=== PATIENT | female | born 1950 | race Caucasian/White ===

== ENCOUNTER → 2023-10-06 13:59 | Outpatient (REF) | payer MEDICARE, OTHER, SELFPAY ==
[2023-10-06 15:00] LABS: % Basophils 0.6 % (0-2); % Eosinophils 1.9 % (0-6); % Immature Granulocytes 0.6 % (0-0.5); % Lymphocytes 20.3 % (20.5-51.1); % Neutrophils 68.6 % (42.2-75.2); Absolute Eosinophils 0.1 10^3/uL (0-0.7); Absolute Lymphocytes 1.4 10^3/uL (1.2-3.4); Absolute Monocytes 0.6 10^3/uL (0.1-0.6); Absolute Neutrophils 4.7 10^3/uL (1.4-6.5); Hemoglobin 12.6 g/dL (12.0-16.0); Mean Corp Hgb Conc. 33.2 g/dL (33.0-37.0); Mean Corpuscular Hgb 30.5 pg (27.0-31.0); Nucleated Red Blood Cells % 0 %; Platelet Count 368 10^3/uL (130-400); Red Blood Cell Count 4.13 10^6/uL (4.20-5.40); Red Cell Dist. Width 12.7 % (11.5-14.5); White Blood Cell Count 6.8 10^3/uL (4.8-10.8)
[2023-10-06 15:52] LABS: Blood Urea Nitrogen 25 mg/dl (7-17); Calcium 10.2 mg/dl (8.4-10.2); Carbon Dioxide 30 mmol/L (22-30); Chloride 102 mmol/L (98-107); Glucose 111 mg/dl (70-99); Potassium 4.1 mmol/L (3.5-5.1); eGFR > 60.00
[2023-10-06 15:57] LABS: Sodium 141 mmol/L (135-145)
== END ==
LOC: RCS 13:59
PROVIDERS: ATTENDING PHYSICIAN Orthopaedic Surgery; FAMILY PHYSICIAN Internal Medicine
DX: Z01.818 Encounter for other preprocedural examination (principal)
CPT/HCPCS: 36415; 80048; 85025; 93005

== ENCOUNTER 2023-11-27 20:40 | Emergency (ER) | payer MEDICARE, OTHER, SELFPAY ==
[2023-11-27 20:41] VITALS: BP 162/78
--- NOTE | 2023-11-27 21:00 | ED.GENMED ---
History of Present Illness
General
Chief Complaint: Post Operative Problem(s)
Source: patient
Time Seen by Provider: 11/27/23 20:53
History of Present Illness
History of Present Illness:
73-year-old female, status post left total knee replacement done on November 15 done by [facility] orthopedics, presenting to the emergency department for evaluation after she had a wound check today with the tom being removed and subsequently
went to physical therapy but while at physical therapy the midportion of the surgical site opened and has had continuous bleeding/oozing since. Patient states that despite multiple dressing changes she is still had periodic bleeding and oozing
which is why she presented to the ER this evening. She states her pain is well-controlled. Denies any fevers or infectious symptoms.
Past History
Past History
ED Past Medical History: Asthma, HTN and Hypercholesterolemia
ED Past Surgical History: Gynecological and Other (Rectocele, cystocele, cataract)
Social History
Tobacco: Non-smoker
Alcohol: None
Drug: None
Personal:
Living: with family
Review of Systems
Review of Systems
All Other Systems: ROS reviewed and negative except as documented in HPI and ROS
Phy Exam
Physical Exam
Physical Exam:
GENERAL: Alert , in no apparent distress
EYE: conjunctiva clear
Head: Normocephalic atraumatic
NECK: Supple,
ENT: mmm.
LUNGS: no acute respiratory distress
NEUROLOGICAL: Alert and oriented
SKIN: Warm and dry, left knee: Surgical incision noted with Steri-Strips overlying. The Steri-Strips are somewhat saturated in serosanguineous drainage. Steri-Strips were removed without any difficulty. There is an approximate 1 cm open
area/dehisced portion of wound with seroma underneath. No active bleeding. No surrounding signs of cellulitis/erythema. Extremities otherwise warm and well-perfused
MUSCULOSKELETAL: well perfused.
PSYCH: Normal and appropriate interaction.
Scores
Heart Failure Risk
Heart Failure Risk Score: Not Applicable
Heart Score for Chest Pain Patients
STEMI patient?: Not applicable
Withdrawal Assessment of Alcohol
Withdrawal Assessment Completed?: Not applicable
Course
Orders/Labs/Results
Orders:
Orders
11/27/23 21:42
Knee Immobilizer Left-Treatmen ONCE
11/27/23 21:44
Cephalexin Monohydrate [Keflex] 500 mg PO NOW STA
Vital Signs
Initial and Last Documented VS:
Initial Vital Signs
Temp Pulse Resp BP Pulse Ox
98.8 F 78 18 162/78 95
11/27/23 20:41 11/27/23 20:41 11/27/23 20:41 11/27/23 20:41 11/27/23 20:41
Last Documented Vital Signs
Temp Pulse Resp BP Pulse Ox
98.8 F 78 18 162/78 95
11/27/23 20:41 11/27/23 20:41 11/27/23 20:41 11/27/23 20:41 11/27/23 20:41
Procedures
Laceration Closure
Left Anterior Knee:
Status of Wound: clean
Size of Wound in cm: 1.5
Description of Wound Edges: sharp
Preparation: cleaned with Betadine
Anesthesia: 1% Lidocaine with epi
Revision/Debridement: routine- no revision
Type of Closure: interrupted sutures (1) and mattress sutures (3)
Skin Closure Material: 4-0 prolene
Number of sutures: 4
MDM/Problems Addressed
Differential Diagnosis Includes:
post op wound, no clinical signs of cellulitis/septic joint
MDM/Problems Addressed:
Patient presenting to the emergency department for evaluation of wound dehiscence to the left knee. Had tom removed today and while at PT the wound dehisced. Serosanguineous drainage presently. Will discuss with patient's orthopedic provider
on management and disposition planning as well as follow-up.
*Pulse Oximetry
Patient hypoxic: no
*Critical Care Note
Total Time (30-74mins, 75-104mins- exclusive of procedures): Not Applicable
Patient Management
Discussion with other providers: Lens Shaper Grinder
Escalation/DeEscalation of care consider admission/obs:
I spoke to Dr. Abdi from orthopedics who had performed patient's surgery. Recommends putting mattress sutures in place. Requesting patient also be placed in a knee immobilizer and to not bend her knee over the weekend. Will place on Keflex to
cover for any infection. Patient will follow-up in office this coming week. Aware of return precautions to the ER.
ED Attending Note
-
Portions of this chart may have been created with voice recognition software.� Occasional wrong word or��sound alike� substitutions may have occurred due to the inherent limitations of voice recognition software.
Discharge Plan
Departure
Patient Disposition: Home (Routine Discharge)
Date of Disposition: 11/27/23
Time of Disposition: 21:41
Patient with high blood pressure during this ER visit?: Yes
Discharge Problem:
Dehiscence of wound
Instructions: Wound Care (DC)
Prescriptions:
New
cephalexin 500 mg tablet
500 mg PO BID 5 Days Qty: 9 0RF
No Action
metronidazole 500 mg tablet
500 mg PO TID Qty: 30 0RF
levofloxacin 500 mg tablet
500 mg PO DAILY 10 Days Qty: 10 0RF
Interventions
Interventions:
*Risk Screen - Suicide Last Done: 11/27/23 20:41
*General Assessment Last Done: 11/27/23 20:45
*Neglect/Abuse Screening Last Done: 11/27/23 20:45
Discharge Date and Time
Print Language: POLISH
[2023-11-27] MEDS: KEFLEX 500 MG PO (22:03)
[2023-11-27 22:05] VITALS: BP 140/75
== END 2023-11-27 22:22 | disposition home or self-care (01) ==
LOC: EMR 20:40
PROVIDERS: EMERGENCY PHYSICIAN Emergency Medicine; FAMILY PHYSICIAN Internal Medicine
DX: T81.30XA Disruption of wound, unspecified, initial encounter (principal); Y83.8 Other surgical procedures as the cause of abnormal reaction of the patient, or of later complication, without mention of misadventure at the time of the procedure; I10 Essential (primary) hypertension
CPT/HCPCS: 99283; 12001

== ENCOUNTER → 2024-10-24 14:38 | Outpatient (REF) | payer MEDICARE, OTHER, SELFPAY ==
[2024-10-24 15:46] LABS: % Basophils 0.5 % (0-2); % Eosinophils 1.6 % (0-6); % Immature Granulocytes 0.4 % (0-0.5); % Lymphocytes 17.3 % (20.5-51.1); % Monocytes 7.1 % (1.7-9.3); % Neutrophils 73.1 % (42.2-75.2); Absolute Eosinophils 0.1 10^3/uL (0-0.7); Absolute Lymphocytes 1.4 10^3/uL (1.2-3.4); Absolute Monocytes 0.6 10^3/uL (0.1-0.6); Absolute Neutrophils 5.8 10^3/uL (1.4-6.5); Mean Corp Hgb Conc. 31.4 g/dL (33.0-37.0); Mean Corpuscular Hgb 27.1 pg (27.0-31.0); Mean Corpuscular Volume 86.2 fL (81.0-99.0); Mean Platelet Volume 9.2 fL (7.4-10.4); Nucleated Red Blood Cells % 0 %; Platelet Count 441 10^3/uL (130-400); Red Blood Cell Count 4.06 10^6/uL (4.20-5.40); Red Cell Dist. Width 14.6 % (11.5-14.5); White Blood Cell Count 7.9 10^3/uL (4.8-10.8)
[2024-10-24 16:00] LABS: Erythrocyte Sed Rate 64 mm/hour (0-20)
== END ==
LOC: REG 14:38
PROVIDERS: ATTENDING PHYSICIAN Physician Assistant Surgical
DX: M25.562 Pain in left knee (principal)
CPT/HCPCS: 36415; 85025; 85652; 86140

== ENCOUNTER → 2024-10-26 12:05 | Outpatient (REF) | payer MEDICARE, OTHER, SELFPAY | LOC: CLAB 12:05 | PROVIDERS: ATTENDING PHYSICIAN Physician Assistant Surgical | DX: Z96.652 Presence of left artificial knee joint (principal) | CPT/HCPCS: 87015; 87070; 87075; 87205 ==

== ENCOUNTER 2024-11-09 07:47 | Inpatient (IN) | payer MEDICARE, OTHER, SELFPAY ==
[2024-11-02 11:29] LABS: Hematocrit 34.5 % (37.0-47.0); Hemoglobin 11.0 g/dL (12.0-16.0); Mean Corp Hgb Conc. 31.9 g/dL (33.0-37.0); Mean Corpuscular Volume 86.0 fL (81.0-99.0); Platelet Count 424 10^3/uL (130-400); Red Cell Dist. Width 14.2 % (11.5-14.5)
[2024-11-02 11:49] LABS: Glycohemoglobin (HgbA1c) 5.8 % (4.0-5.6)
[2024-11-02 11:58] LABS: ALT (SGPT) 10 U/L (0-35); AST (SGOT) 15 U/L (14-36); Albumin 4.2 g/dl (3.5-5.0); Alkaline Phosphatase 103 U/L (38-126); Blood Urea Nitrogen 24 mg/dl (7-17); Calcium 10.0 mg/dl (8.4-10.2); Carbon Dioxide 27 mmol/L (22-30); Chloride 106 mmol/L (98-107); Glucose 111 mg/dl (70-99); Potassium 4.2 mmol/L (3.5-5.1); Sodium 143 mmol/L (135-145); Total Protein 7.7 g/dl (6.3-8.2); eGFR > 60.00
[2024-11-02 13:24] LABS: Iron 69 ug/dl (37-170)
[2024-11-02 13:33] LABS: Total Iron Binding Capacity 276 ug/dl (265-497)
--- NOTE | 2024-11-02 13:37 | CM ---
Addendum entered by Kemi Palmer RN 11/03/24 10:50:
Cm reviewed medical records. CM spoke with patient via live telephone. Patient is agreeable to IV antibiotics and is willing to learn. Patient's sister is also available and a retired RN. Patient was updated that [facility] and [facility] are on board
and referrals have been sent.
CM will remain available as needed.
Addendum entered by Kemi Palmer RN 11/02/24 14:47:
CM referred patient to [facility].
Original Note:
CM was updated by orthopedic PA that patient will present for OR on 11/09. Patient will need home IV antibiotics for 6-8 weeks. CM sent preliminary referral via [facility] to [facility]. CM left message for patient to discuss discharge planning.
[2024-11-02 13:54] VITALS: BMI 28.4
[2024-11-02 14:26] LABS: Ferritin 80.9 ng/ml (11.1-264.0)
[2024-11-02 14:30] VITALS: BMI 28.4
[2024-11-02 14:57] LABS: Folate 5.0 ng/ml (2.76-20); Vitamin B12 243 pg/ml (239-931)
--- NOTE | 2024-11-03 15:41 | PTCARENOTE ---
Abnormal EKG on 11/02/24. Dr. Carpio aware. No intervention required.
[2024-11-09] VITALS (14 sets, daily range): BP systolic 121–146; BP diastolic 62–78; PULSE 82; O2SAT 92; BMI 28.4
[2024-11-09] MEDS: TYLENOL 650 MG PO ×2 (08:12→20:04)
[2024-11-09] MEDS: CELEBREX 200 MG PO (08:13)
[2024-11-09] MEDS: NORMOSOL-R/PLASMALYTE-A 1000 IV ×2 (08:13→18:23)
--- NOTE | 2024-11-09 09:00 | W.PN.UPDATE ---
Update Note
Progress Note Update
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
- Consult ID for abx recommendations
DVT prophylaxis - ASA, b/l venous foot pumps
HTN - + parameters - monitor BP
Asthma, mild and intermittent - monitor O2
- IS
- Resume Singulair, home inhaler prn
GERD - continue PPI therapy
Reported ulcerative colitis, in remission - minimize NSAIDs
Mild anemia; pre-operative anemia panel stable
Mild thrombocytosis
- CBC in AM
OA, s/p L TKA, 11/2023, by Dr Abdi
Hypercholesterolemia
Colon polyps
Diverticulosis
Vertigo
Osteopenia
Anxiety/depression
Prediabetes, A1c 5.8
History of remote tobacco abuse
--- NOTE | 2024-11-09 13:23 | CM ---
CM reviewed medical records. VASYL spoke with Patience from [facility]. Patience is trying to find staffing for 11/11 for home teach. CM requested ID update this CM with recommendations.
CM will remain available.
[2024-11-09] MEDS: ROXICODONE 5 MG PO (13:50)
--- NOTE | 2024-11-09 14:15 | PTCARENOTE ---
Pt received from PACU via bed. Transport was w/o incident. Pt is AAOx3, HRR, lungs are sl coarse, decreased (Pt admits to hx of asthma), pulse ox 92%RA. VSS, Pt is afebrile. Pt's left knee with primaseal dressing intact, small line of bloody
drainage noted at incision line. Pt reports minimal pain to left knee and denies nausea. Pt instructed on plan of care, pt verbalized understanding of instructions, call prdie is within reach.
[2024-11-09] MEDS: PROTONIX PO (15:00)
--- NOTE | 2024-11-09 17:09 | CON.ID ---
Consultation
-
Date/Time Consultation Requested: 11/09/2024 1237
Date/Time Consultation Performed: 11/09/2024 1530
Requesting Provider: Dr. Abdi
Performing Provider: Dr. Ruth
Reason for Consultation: Left knee PJI
Chief Complaint / Past History
History of Present Illness
Cassi Lozoya is a 74-year-old female being evaluated for request of Dr. Abdi in regards to a left knee PJI. History is obtained from chart review, along with patient interview.
The patient underwent an initial left TKA in November 2023, and reports she did well in the immediate postop period, and was ultimately discharged to home. She notes, though, then while she was doing outpatient rehab approximately 11 days after surgery
her knee incision broke open. She was evaluated in the ER secondary to ongoing bleeding/bruising despite multiple dressing changes. Ultimately the area was sutured back in place. Patient reports over the following year she continued to have
swelling of the knee.
She has continued to have discomfort in the knee, and recently underwent an aspiration of the fluid, with the findings of Enterococcus on culture. Additionally, Synovasure was noted to be positive. She was taken to the OR today for a washout and
modified single-stage procedure, and Infectious Diseases is asked to comment upon further antimicrobial management.
Past History
Additional Past Medical History:
Osteoarthritis
Hypertension
HLD
Asthma
GERD
Diverticulosis
Additional Past Surgical History:
Left TKA
Left knee ligament surgery
ZAHEER
Allergy History:
No Known Allergies Allergy (Verified 11/09/24 07:56)
Medications Reviewed: Yes
Current Antibiotics:
IntraOp cefazolin
Social History
Tobacco: Non-Smoker
Alcohol: None
Drug: Other (Medical Gummies)
Living: With Family
Employment: Employed
Family History
Family History: Not Pertinent
Review of Systems
Vital Signs
Temp Pulse Resp BP Pulse Ox
97.7 F 82 14 129/70 93
11/09/24 15:30 11/09/24 15:30 11/09/24 15:30 11/09/24 15:30 11/09/24 15:30
Physical Exam
Physical Exam
Constitutional: No Acute Distress, Comfortable and Non-toxic
Eyes: No Conjunctival Hemorrhage and Sclera Anicteric
Oral: No Thrush and No Ulcers
Cardiovascular: Regular Rate and S1/S2; Negative S3/S4
Pulmonary: Clear; Negative Wheezes, Rales or Rhonchi
Gastrointestinal: Soft, Non Tender and Non Distended
Extremities: Edema
Wound: Other (Left knee with bandage in place. Small amount of bloody strikethrough.)
Neurological: Awake and Alert
Psychological: Calm
Lab / Diagnostic Study Results
11/02/24 11:05
11/02/24 11:05
Microbiology Results
Micro:
11/09/24 11:39 Tissue Culture - Pending
Knee - Left Gram Stain - Preliminary
11/09/24 11:39 Tissue Culture - Pending
Knee - Left Gram Stain - Preliminary
11/09/24 11:39 Tissue Culture - Pending
Knee - Left Gram Stain - Preliminary
11/02/24 11:05 MRSA Screen - Final
Nose No Methicillin Resistant Staphylococcus aureus isolated.
Fluid Cult/not urine Final 10/26/2024
Enterococcus faecalis
Organism 1 Enterococcus faecalis

* This is an amended result. *
Due to physician's request for additional antibiotics.

A prior result that was reported as final has been changed.
1. Enterococcus faecalis
M.I.C. RX
--------- ---
Ampicillin <=2 S
Daptomycin 1 S
Gentamicin Synergy Screen <=500 S
Susceptible result indicates synergy is likely with a cell
wall active agent that is also susceptible
(e.g.ampicillin,penicillin,vancomycin)
Linezolid 2 S
Vancomycin 1 S
Gram Stain Final 10/31/24
Few WBC
No Organisms Seen
Assessment / Plan
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
Elevated ESR
Elevated CRP
Osteoarthritis
Hypertension
HLD
Asthma
GERD
Diverticulosis
Recommendations:
Begin ampicillin 2 g IV every 4 hours.
At the time of discharge, patient can be transitioned to 12 gm IV over 24h via continuous infusion.
Patient will require 6 weeks of IV antibiotics.
Place PICC line.
Will follow weekly BMP, CBC, ESR and CRP
Home infusion sheet placed on paper chart.
Given that patient underwent a single-stage procedure, with thereafter maintained on suppressive amoxicillin for at least 6 months, and possibly lifelong.
Care Review
Plan reviewed with: Physician (Orthopedics)
[2024-11-09] MEDS: ORETIC PO (17:37)
[2024-11-09] MEDS: ZOFRAN 4 MG IV (18:22)
[2024-11-09] MEDS: AMPICILLIN 108 MG IV ×2 (18:23→22:05)
[2024-11-09] MEDS: ASPIRIN 325 MG PO (18:25)
[2024-11-09] MEDS: TYLENOL PO ×2 (18:25→23:56)
[2024-11-09] MEDS: COLACE PO (20:03)
[2024-11-09] MEDS: SENOKOT PO (20:03)
[2024-11-09] MEDS: PROTONIX 20 MG PO (20:04)
[2024-11-09] MEDS: BACTROBAN 2% OINTMENT 1 APPLIC NASAL (20:04)
[2024-11-09] MEDS: PRAVACHOL 20 MG PO (22:01)
[2024-11-09] MEDS: XANAX 0.5 MG PO (22:01)
[2024-11-09] MEDS: SINGULAIR 10 MG PO (22:01)
[2024-11-09] MEDS: ZOLOFT 100 MG PO (22:01)
[2024-11-09] MEDS: ZESTRIL PO (22:04)
[2024-11-10] VITALS (7 sets, daily range): BP systolic 103–160; BP diastolic 48–75; PULSE 59–69; O2SAT 97
[2024-11-10] MEDS: AMPICILLIN 108 MG IV ×6 (02:06→22:21)
[2024-11-10] MEDS: ROXICODONE 10 MG PO ×2 (03:30→08:25)
[2024-11-10] MEDS: TYLENOL 650 MG PO ×5 (03:30→20:20)
--- NOTE | 2024-11-10 07:42 | CM ---
Addendum entered by Kemi Palmer RN 11/10/24 12:29:
CM was advised that [facility] and [facility] are not able to arrange for visits/delivery until Thursday. Patient will be seen by [facility] at home at Thursday afternoon. CM will confirm delivery with [facility] on 11/12.
CM updated patient with plan. Patient was tearful and stated that she missed her dog and she provides support for her sister who lives with her. Patient stated that her sister is able to care for herself, but the patient likes to be available for
her. CM updated medical team and bedside RN.
PLAN: home with [facility] and [facility] on 11/12
Original Note:
CM updated [facility] and [facility] with IV antibiotic script.
--- NOTE | 2024-11-10 07:42 | W.PN.UPDATE ---
Update Note
Progress Note Update
pt seen and examined. says muscles are sore but knee feels decent. Bandage w. scant incisional blood, knee swollen as expected.
Pt expresses desire to go home jana. I tolde her we will assess her function w. PT and obtain input from ID on how quickly she can be d/c. She woudl need a IV catheter for this.
[2024-11-10 07:54] LABS: Hematocrit 26.7 % (37.0-47.0); Hemoglobin 8.2 g/dL (12.0-16.0); Mean Corp Hgb Conc. 30.7 g/dL (33.0-37.0); Mean Corpuscular Volume 87.0 fL (81.0-99.0); Platelet Count 359 10^3/uL (130-400); Red Cell Dist. Width 14.3 % (11.5-14.5)
[2024-11-10 08:18] LABS: Blood Urea Nitrogen 22 mg/dl (7-17); Calcium 8.6 mg/dl (8.4-10.2); Carbon Dioxide 27 mmol/L (22-30); Chloride 108 mmol/L (98-107); Estimated Creatinine Clearance 72 ml/min; Glucose 114 mg/dl (70-99); Potassium 4.3 mmol/L (3.5-5.1); Sodium 139 mmol/L (135-145); eGFR > 60.00
[2024-11-10] MEDS: PROTONIX 20 MG PO ×2 (08:21→20:20)
[2024-11-10] MEDS: ASPIRIN 325 MG PO (08:21)
[2024-11-10] MEDS: ORETIC PO (08:22)
[2024-11-10] MEDS: COLACE 100 MG PO ×2 (08:22→20:20)
[2024-11-10] MEDS: BACTROBAN 2% OINTMENT 1 APPLIC NASAL ×2 (08:22→20:19)
[2024-11-10] MEDS: SENOKOT 17.2 MG PO ×2 (08:22→20:20)
--- NOTE | 2024-11-10 09:19 | W.PN.ORTHO ---
Today's Communication / Plan
-
Await H&H and anemia panel results.
Place PICC line and coordinate abx upon d/c w/ VN.
Continue to monitor urination.
Possible d/c later today if clinically stable and infusions able to be set up today.
Assessment
.
Distal Motor Intact: Yes
Dressing:
Small areas old bleeding along incision line.
Assessment:
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
- In office cultures of L knee demonstrating Enterococcus. Intra-op tissue cultures, gram stain pending
- Appreciate ID for abx recommendations -> Ampicillin 2g IV q4h while admitted w/ transition to 12g IV over 24h via continuous infusion. PICC to be placed today
- Will need weekly CBC, CMP, ESR, CRP w/ results to ID
- Home PT/VN upon d/c
DVT prophylaxis - ASA, b/l venous foot pumps
Post-surgical urinary retention, requiring straight cath x1 - improved by POD 1
- Flomax prn
HTN - + parameters - BPs currently stable
Asthma, mild and intermittent - O2 stable on RA
- IS
- Resume Singulair, home inhaler prn
GERD - continue PPI therapy
Reported ulcerative colitis, in remission - minimize NSAIDs
Mild anemia; pre-operative anemia panel stable
Mild thrombocytosis
- CBC early POD w/ hgb 8.2; result, however, could be partially hemodilutional given IVF overnight. Blood loss in OR reportedly minimal. Reassess H&H later today
- Order repeat anemia panel and replete if indicated w/ IV iron, IM B12, etc.
- Of note, pt currently asymptomatic and hemodynamically stable. Prefer not to transfuse unless hgb <7, symptomatic.
OA, s/p L TKA, 11/2023, by Dr Abdi
Hypercholesterolemia
Colon polyps
Diverticulosis
Vertigo
Osteopenia
Anxiety/depression
Prediabetes, A1c 5.8
History of remote tobacco abuse
Plan
.
Surgery / Date: Revision of L TKA w/ Dr Abdi 11/09/24
DVT Prophylaxis: Aspirin
Activity:
Out of bed.
PT/OT
Discharge Plan: Home w/ VN
Subjective
.
.:
Patient appearing to rest comfortably in bed.
Mild dizziness this AM but otherwise asymptomatic.
Acute on chronic anemia noted - will reassess H&H later today.
Vital Signs and Labs
.
Vital Signs and Labs:
Lab Results
11/10/24 07:29
11/10/24 07:29
Temp Pulse Resp BP Pulse Ox
98.1 F 69 16 126/64 95
11/10/24 07:40 11/10/24 07:40 11/10/24 07:40 11/10/24 07:40 11/10/24 07:40
Non-invasive Hgb result: 10.4
Physical Exam
-
HEENT: No pallor, cyanosis, or jaundice. Throat clear.
NECK: Supple. No JVD.
RESPIRATORY: Lungs clear to auscultation.
CVS: S1, S2 normal. RRR.�
ABDOMEN: Soft, non-tender. No distension.
EXTREMITIES: Strength equal, no calf pain with palpation/dorsiflexion. Calves soft.
FIREBOAT OPERATOR: AOx3. No focal deficits. social work job titles grossly intact
[2024-11-10] MEDS: ZOFRAN 4 MG IV (10:08)
[2024-11-10 10:09] LABS: Iron 42 ug/dl (37-170)
[2024-11-10 10:19] LABS: Total Iron Binding Capacity 212 ug/dl (265-497)
--- NOTE | 2024-11-10 11:07 | W.DS.TRANS ---
DC Summary - Sheet Manager
-
Discharge Instructions:
Sleep Apnea Risk Low
Discharge Diagnosis/Procedures Infection of left total knee prosthesis s/p
Revision of L TKA w/ Dr Abdi 11/09/24
Diet Other diet
Additional Diets Diabetic, carb controlled diet x1 week for wound
healing purposes.
Adequate hydration, minimize opioids, and wear
TEDs stockings to prevent low blood pressure/
dizziness.
Activity As tolerated,With Walker
Driving Restrictions Not until seen by your Dr
Bathing Restrictions OK to Shower
Blood Work CBC, CMP, ESR, CRP weekly on Mondays w/ results
to Dr. Vineet Ruth of infectious disease and
surgeon
Other Services PT,VN
Wound Care Dressing to be removed 1 week post-surgery.
Instructions:
Stand-Alone Forms: Total Hip/Knee Replacement D/C
Changes to Home Medications: Yes
Discharge Medications:
DC Medications w/original date entered in [employer]
albuterol sulfate 90 mcg/actuation aerosol inhaler 2 puff inhalation Q6H PRN SOB 11/01/24
montelukast 10 mg tablet (Singulair) 10 mg PO HS Allergies 11/01/24
pravastatin 20 mg tablet 20 mg PO HS High Cholesterol 11/01/24
alprazolam 0.5 mg tablet 0.5 mg PO HS Mental Health/Anxiety 11/02/24
esomeprazole magnesium 20 mg tablet,delayed release 20 mg PO BID Gastrointestinal Issue 11/02/24
mupirocin 2 % topical ointment 1 applic intranasal BID #1 tube 11/02/24
sertraline 100 mg tablet 100 mg PO HS Mental Health/Anxiety 11/02/24
Saccharomyces boulardii 250 mg capsule (Florastor) 250 mg PO DAILY #45 caps 11/10/24
acetaminophen 500 mg tablet (Tylenol Extra Strength) 1,000 mg (2 x 500 mg) PO Q6H #60 tabs 11/10/24
ampicillin sodium 2 gram intravenous solution 12 g IV Q24H 6 weeks 11/10/24
aspirin 325 mg tablet 325 mg PO DAILY #30 tabs 11/10/24
baclofen 5 mg tablet 5 mg PO DAILY PRN muscle spasms #10 tabs 11/10/24
docusate sodium 100 mg capsule 100 mg PO BID #30 caps 11/10/24
hydrochlorothiazide 25 mg tablet 25 mg PO DAILY Blood Pressure #1 tab 11/10/24
lidocaine 4 % topical patch 2 patch topical DAILY #30 ea 11/10/24
lisinopril 40 mg tablet 40 mg PO HS Blood Pressure #1 tab 11/10/24
ondansetron HCl 4 mg tablet 4 mg PO Q6H PRN nausea and vomiting #30 tabs 11/10/24
oxycodone 5 mg tablet 5 - 10 mg (1 - 2 x 5 mg) PO Q6H PRN moderate-severe pain #30 tabs 11/10/24
sennosides 8.6 mg tablet (Ghazal-daniel) 17.2 mg (2 x 8.6 mg) PO BID #30 tabs 11/10/24
Home Medication Changes
Saccharomyces boulardii 250 mg capsule (Florastor) 250 mg PO DAILY #45 caps 11/10/24
acetaminophen 500 mg tablet (Tylenol Extra Strength) 1,000 mg (2 x 500 mg) PO Q6H #60 tabs 11/10/24
ampicillin sodium 2 gram intravenous solution 12 g IV Q24H 6 weeks 11/10/24
aspirin 325 mg tablet 325 mg PO DAILY #30 tabs 11/10/24
baclofen 5 mg tablet 5 mg PO DAILY PRN muscle spasms #10 tabs 11/10/24
docusate sodium 100 mg capsule 100 mg PO BID #30 caps 11/10/24
lidocaine 4 % topical patch 2 patch topical DAILY #30 ea 11/10/24
ondansetron HCl 4 mg tablet 4 mg PO Q6H PRN nausea and vomiting #30 tabs 11/10/24
oxycodone 5 mg tablet 5 - 10 mg (1 - 2 x 5 mg) PO Q6H PRN moderate-severe pain #30 tabs 11/10/24
sennosides 8.6 mg tablet (Ghazal-daniel) 17.2 mg (2 x 8.6 mg) PO BID #30 tabs 11/10/24
PO vitamin B12
Pending Results: Yes (left knee tissue culture, gram stain)
[2024-11-10 11:20] LABS: Ferritin 89.3 ng/ml (11.1-264.0)
[2024-11-10] MEDS: LIDOCAINE 4% PATCH 2 PATCH TOPICAL (11:20)
--- NOTE | 2024-11-10 11:36 | PTCARENOTE ---
Pt with c/o nausea and dizziness following positional changes this am. VSS. Pt admits to symptoms resolving once laying down. Guillermina Goodson Pa-c made aware. Care remains ongoing.
[2024-11-10 11:51] LABS: Folate 4.1 ng/ml (2.76-20); Vitamin B12 227 pg/ml (239-931)
[2024-11-10] MEDS: ANTIVERT 25 MG PO (11:58)
--- NOTE | 2024-11-10 12:06 | W.PN.UPDATE ---
Update Note
Progress Note Update
Pt reportedly overly dizzy (downplayed this earlier when asked) and nauseous since OT today.
Symptoms reportedly worse w/ positional changes. VS WNL.
Will give Meclizine x1 as could be vertigo related. Compazine and Zofran ordered prn.
Monitor
Add on anemia panel revealed low Vitamin B12.
Will administer daily B12 IM during admission. Can switch to oral form upon d/c.
Monitor hgb closely
--- NOTE | 2024-11-10 12:11 | W.PN.ID1 ---
Date of Service
Date of Service: November 10, 2024
Today's Communication
Continue antibiotics.
Assessment / Plan
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
Elevated ESR
Elevated CRP
Osteoarthritis
Hypertension
HLD
Asthma
GERD
Diverticulosis
Recommendations:
Begin ampicillin 2 g IV every 4 hours.
At the time of discharge, patient will be be transitioned to 12 gm IV over 24h via continuous infusion.
Patient will require 6 weeks of IV antibiotics.
PICC line placed
Will follow weekly BMP, CBC, ESR and CRP
Home infusion sheet placed on paper chart.
Given that patient underwent a single-stage procedure, with thereafter maintained on suppressive amoxicillin for at least 6 months, and possibly lifelong.
Will follow in the office.
����������������������������������������������������������
Chief Complaint
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
Subjective / Review of Systems
No fevers or chills.
Vital Signs / Physical Exam
Vital Signs
Vital Signs
Temp Pulse Resp BP Pulse Ox
98.1 F 85 16 153/74 95
11/10/24 07:40 11/10/24 10:05 11/10/24 10:05 11/10/24 10:05 11/10/24 07:40
Physical Exam
Constitutional: No Acute Distress, Comfortable and Non-toxic
Cardiovascular: S1/S2; Negative S3/S4
Pulmonary: Non Labored
Gastrointestinal: Soft, Non Tender and Non Distended
Wound: Other (Left knee dressing in place with small amount of bloody strikethrough)
Neurological: Awake and Alert
Psychological: Calm
Lines: PICC (Right upper extremity; dual-lumen)
Objective Data
Lab Data
Lab Results
11/10/24 07:29
Estimated Creat Clear 72 ml/min 11/10/24 07:29
Total Bilirubin 0.5 mg/dl (0.2-1.3) 11/02/24 11:05
AST 15 U/L (14-36) 11/02/24 11:05
ALT 10 U/L (0-35) 11/02/24 11:05
Alkaline Phosphatase 103 U/L (38-126) 11/02/24 11:05
Most recent labs reviewed.
Micro Results:
11/09/24 11:39 Tissue Culture - Preliminary
Knee - Left No Growth After 18-24 Hours
Gram Stain - Preliminary
11/09/24 11:39 Tissue Culture - Preliminary
Knee - Left No Growth After 18-24 Hours
Gram Stain - Preliminary
11/09/24 11:39 Tissue Culture - Preliminary
Knee - Left No Growth After 18-24 Hours
Gram Stain - Preliminary
11/02/24 11:05 MRSA Screen - Final
Nose No Methicillin Resistant Staphylococcus aureus isolated.
Fluid Cult/not urine Final 10/26/2024
Enterococcus faecalis
Organism 1 Enterococcus faecalis

* This is an amended result. *
Due to physician's request for additional antibiotics.

A prior result that was reported as final has been changed.
1. Enterococcus faecalis
M.I.C. RX
--------- ---
Ampicillin <=2 S
Daptomycin 1 S
Gentamicin Synergy Screen <=500 S
Susceptible result indicates synergy is likely with a cell
wall active agent that is also susceptible
(e.g.ampicillin,penicillin,vancomycin)
Linezolid 2 S
Vancomycin 1 S
Gram Stain Final 10/31/24
Few WBC
No Organisms Seen
[2024-11-10 12:46] LABS: Hematocrit 26.2 % (37.0-47.0); Hemoglobin 8.2 g/dL (12.0-16.0)
[2024-11-10] MEDS: CYANOCOBALAMIN 1000 MCG IM (13:08)
--- NOTE | 2024-11-10 14:08 | PTCARENOTE ---
Pt ambulated to bathroom and back to bed with assistance from NSG staff, gait steady. Pt denies nausea/dizziness at this time. Care remains ongoing.
--- NOTE | 2024-11-10 16:16 | CM ---
CM confirmed that medication will be delivered Thursday at around 2pm. [facility] will meet patient at home.
PLAN: [facility], [facility] for Continuous Ampicillin via PICC>
[2024-11-10] MEDS: XANAX 0.5 MG PO (22:21)
[2024-11-10] MEDS: FLUSH (NSS) 1 FLUSH IV (22:21)
[2024-11-10] MEDS: ROXICODONE 5 MG PO (22:21)
[2024-11-10] MEDS: REMOVE LIDOCAINE PATCH 2 PATCH REMOVE (22:22)
[2024-11-10] MEDS: MELATONIN 5 MG PO (22:22)
[2024-11-10] MEDS: SINGULAIR 10 MG PO (22:23)
[2024-11-10] MEDS: PRAVACHOL 20 MG PO (22:23)
[2024-11-10] MEDS: ZOLOFT 100 MG PO (22:23)
[2024-11-10] MEDS: ZESTRIL 40 MG PO (22:30)
[2024-11-11] MEDS: TYLENOL 650 MG PO ×5 (00:19→19:58)
[2024-11-11] MEDS: AMPICILLIN 108 MG IV ×6 (02:15→22:22)
[2024-11-11] MEDS: FLUSH (NSS) 1 FLUSH IV ×3 (02:15→06:00)
[2024-11-11 06:13] LABS: Hematocrit 24.1 % (37.0-47.0); Hemoglobin 7.6 g/dL (12.0-16.0); Mean Corp Hgb Conc. 31.5 g/dL (33.0-37.0); Mean Corpuscular Volume 86.1 fL (81.0-99.0); Platelet Count 296 10^3/uL (130-400); Red Cell Dist. Width 14.2 % (11.5-14.5)
[2024-11-11 06:39] LABS: C-Reactive Protein 43.40 mg/L (0.0-10.00)
[2024-11-11 07:42] VITALS: BP 128/65
[2024-11-11] MEDS: COLACE 100 MG PO (08:28)
[2024-11-11] MEDS: ORETIC PO (08:28)
[2024-11-11] MEDS: SENOKOT 17.2 MG PO (08:28)
[2024-11-11] MEDS: PROTONIX 20 MG PO ×2 (08:28→19:58)
[2024-11-11] MEDS: ASPIRIN 325 MG PO (08:29)
[2024-11-11] MEDS: LIDOCAINE 4% PATCH TOPICAL (08:31)
[2024-11-11] MEDS: CYANOCOBALAMIN 1000 MCG IM (08:31)
--- NOTE | 2024-11-11 09:50 | W.PN.ORTHO ---
Today's Communication / Plan
-
Assessment:
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
- In office cultures of L knee demonstrating Enterococcus. Intra-op tissue cultures, gram stain pending
- Appreciate ID for abx recommendations, PICC line
- Will need weekly CBC, CMP, ESR, CRP w/ results to ID
- Home PT/VN upon d/c
DVT prophylaxis - ASA, b/l venous foot pumps
Post-surgical urinary retention, requiring straight cath x1 - improved by POD 1
- Flomax prn
HTN - + parameters - BPs currently stable
Asthma, mild and intermittent - O2 stable on RA
- IS
- Resume Singulair, home inhaler prn
GERD - continue PPI therapy
Reported ulcerative colitis, in remission - minimize NSAIDs
Mild anemia; pre-operative anemia panel stable
Mild thrombocytosis
- CBC early POD w/ hgb 7.6- will obtain AM labs
- Of note, pt currently asymptomatic and hemodynamically stable. Prefer not to transfuse unless hgb <7, symptomatic.
OA, s/p L TKA, 11/2023, by Dr Abdi
Hypercholesterolemia
Colon polyps
Diverticulosis
Vertigo
Osteopenia
Anxiety/depression
Prediabetes, A1c 5.8
History of remote tobacco abuse
Planned for DC tomorrow if stable
Assessment
.
Distal Motor Intact: Yes
Dressing:
Clean, dry and intact.
Plan
.
Surgery / Date: Revision of L TKA w/ Dr Abdi 11/09/24
Activity:
Out of bed.
PT/OT
Subjective
.
.:
Patient resting comfortably.
Vital Signs and Labs
.
Vital Signs and Labs:
Lab Results
11/11/24 06:02
11/10/24 07:29
Temp Pulse Resp BP Pulse Ox
98.0 F 69 16 128/65 98
11/11/24 07:42 11/11/24 07:42 11/11/24 07:42 11/11/24 07:42 11/11/24 07:42
Non-invasive Hgb result: 10.4
--- NOTE | 2024-11-11 10:10 | W.PN.ID1 ---
Date of Service
Date of Service: November 11, 2024
Today's Communication
Continue abx.
Assessment / Plan
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
- S/p washout / modified single-stage procedure (11/09/24)
Elevated ESR
Elevated CRP
Osteoarthritis
Hypertension
HLD
Asthma
GERD
Diverticulosis
Recommendations:
Contine ampicillin 2 g IV every 4 hours.
At the time of discharge, patient will be be transitioned to 12 gm IV over 24h via continuous infusion.
Patient will require 6 weeks of IV antibiotics.
PICC line placed
Will follow weekly BMP, CBC, ESR and CRP
Home infusion sheet placed on paper chart.
Given that patient underwent a single-stage procedure, with thereafter maintained on suppressive amoxicillin for at least 6 months, and possibly lifelong.
Will follow in the office.
����������������������������������������������������������
Chief Complaint
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
Subjective / Review of Systems
Patient seen and examined. Reports no difficulty with antibiotics. Knee pain controlled
Vital Signs / Physical Exam
Vital Signs
Vital Signs
Temp Pulse Resp BP Pulse Ox
98.0 F 69 16 128/65 98
11/11/24 07:42 11/11/24 07:42 11/11/24 07:42 11/11/24 08:28 11/11/24 07:42
Physical Exam
Constitutional: No Acute Distress, Comfortable and Non-toxic
Pulmonary: Non Labored
Gastrointestinal: Soft, Non Tender and Non Distended
Extremities: Edema
Wound: Other (Left knee dressing in place with small amount of bloody strikethrough)
Neurological: Awake and Alert
Psychological: Calm
Lines: PICC (Right upper extremity; dual-lumen)
Objective Data
Lab Data
Lab Results
11/11/24 06:02
11/10/24 07:29
ESR 73 mm/hour (0-20) H 11/11/24 06:02
Estimated Creat Clear 72 ml/min 11/10/24 07:29
Total Bilirubin 0.5 mg/dl (0.2-1.3) 11/02/24 11:05
AST 15 U/L (14-36) 11/02/24 11:05
ALT 10 U/L (0-35) 11/02/24 11:05
Alkaline Phosphatase 103 U/L (38-126) 11/02/24 11:05
C-Reactive Protein 43.40 mg/L (0.0-10.00) H 11/11/24 06:02
Most recent labs reviewed.
Micro Results:
11/09/24 11:39 Tissue Culture - Preliminary
Knee - Left No Growth After 18-24 Hours
Gram Stain - Preliminary
11/09/24 11:39 Tissue Culture - Preliminary
Knee - Left No Growth After 18-24 Hours
Gram Stain - Preliminary
11/09/24 11:39 Tissue Culture - Preliminary
Knee - Left No Growth After 18-24 Hours
Gram Stain - Preliminary
11/02/24 11:05 MRSA Screen - Final
Nose No Methicillin Resistant Staphylococcus aureus isolated.
Fluid Cult/not urine Final 10/26/2024
Enterococcus faecalis
Organism 1 Enterococcus faecalis

* This is an amended result. *
Due to physician's request for additional antibiotics.

A prior result that was reported as final has been changed.
1. Enterococcus faecalis
M.I.C. RX
--------- ---
Ampicillin <=2 S
Daptomycin 1 S
Gentamicin Synergy Screen <=500 S
Susceptible result indicates synergy is likely with a cell
wall active agent that is also susceptible
(e.g.ampicillin,penicillin,vancomycin)
Linezolid 2 S
Vancomycin 1 S
Gram Stain Final 10/31/24
Few WBC
No Organisms Seen
[2024-11-11] MEDS: ROXICODONE 5 MG PO ×3 (12:10→22:31)
[2024-11-11 15:55] VITALS: BP 118/54
[2024-11-11] MEDS: TYLENOL PO (16:00)
[2024-11-11] MEDS: SENOKOT PO (19:58)
[2024-11-11] MEDS: REMOVE LIDOCAINE PATCH 2 PATCH REMOVE (19:59)
[2024-11-11] MEDS: COLACE PO (19:59)
[2024-11-11] MEDS: XANAX 0.5 MG PO (22:23)
[2024-11-11] MEDS: ZOLOFT 100 MG PO (22:23)
[2024-11-11] MEDS: PRAVACHOL 20 MG PO (22:23)
[2024-11-11] MEDS: SINGULAIR 10 MG PO (22:23)
[2024-11-11 23:00] VITALS: BP 149/64
[2024-11-11] MEDS: ZESTRIL PO (23:54)
[2024-11-12] MEDS: TYLENOL PO ×2 (00:46→05:04)
[2024-11-12] MEDS: AMPICILLIN 108 MG IV ×3 (02:04→09:55)
[2024-11-12 04:58] LABS: Hematocrit 23.3 % (37.0-47.0); Hemoglobin 7.4 g/dL (12.0-16.0); Mean Corp Hgb Conc. 31.8 g/dL (33.0-37.0); Mean Corpuscular Volume 86.0 fL (81.0-99.0); Nucleated Red Blood Cells % 0 %; Platelet Count 302 10^3/uL (130-400); Red Cell Dist. Width 14.5 % (11.5-14.5)
[2024-11-12] MEDS: ROXICODONE 5 MG PO ×2 (06:06→12:00)
[2024-11-12 06:20] LABS: Vitamin B12 > 1000 pg/ml (239-931)
[2024-11-12 07:35] VITALS: BP 160/75
[2024-11-12] MEDS: TYLENOL 650 MG PO ×2 (08:03→12:00)
[2024-11-12] MEDS: PROTONIX 20 MG PO (08:03)
[2024-11-12] MEDS: ORETIC 25 MG PO (08:03)
[2024-11-12] MEDS: ASPIRIN 325 MG PO (08:03)
[2024-11-12] MEDS: LIDOCAINE 4% PATCH TOPICAL ×2 (08:04→08:10)
[2024-11-12] MEDS: COLACE PO (08:04)
[2024-11-12] MEDS: SENOKOT PO (08:05)
[2024-11-12] MEDS: CYANOCOBALAMIN 1000 MCG IM (08:05)
--- NOTE | 2024-11-12 08:34 | W.PN.ORTHO ---
Today's Communication / Plan
-
Assessment:
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
- In office cultures of L knee demonstrating Enterococcus. Intra-op tissue cultures, gram stain pending
- Appreciate ID for abx recommendations, PICC line
- Will need weekly CBC, CMP, ESR, CRP w/ results to ID
- Home PT/VN upon d/c
DVT prophylaxis - ASA, b/l venous foot pumps
Post-surgical urinary retention, requiring straight cath x1 - improved by POD 1
- Flomax prn
HTN - + parameters - BPs currently stable
Asthma, mild and intermittent - O2 stable on RA
- IS
- Resume Singulair, home inhaler prn
GERD - continue PPI therapy
Reported ulcerative colitis, in remission - minimize NSAIDs
Mild anemia; pre-operative anemia panel stable
Mild thrombocytosis
OA, s/p L TKA, 11/2023, by Dr Abdi
Hypercholesterolemia
Colon polyps
Diverticulosis
Vertigo
Osteopenia
Anxiety/depression
Prediabetes, A1c 5.8
History of remote tobacco abuse
Planned for DC today unless recommended otherwise per CM
Assessment
.
Distal Motor Intact: Yes
Dressing:
Clean, dry and intact.
Plan
.
Surgery / Date: Revision of L TKA w/ Dr Abdi 11/09/24
Activity:
Out of bed.
PT/OT
Subjective
.
.:
Patient resting comfortably.
Vital Signs and Labs
.
Vital Signs and Labs:
Lab Results
11/12/24 04:49
11/10/24 07:29
Temp Pulse Resp BP Pulse Ox
98.9 F 73 16 160/75 97
11/12/24 07:35 11/12/24 07:35 11/12/24 07:35 11/12/24 08:03 11/12/24 07:35
Non-invasive Hgb result: 10.4
--- NOTE | 2024-11-12 09:00 | W.DCSUMMARY ---
Discharge Summary
Discharge Data
Date of Admission: 11/09/24
Date of Discharge: 11/12/24
-
Pending Results: No
Hospital Course
74-year-old female presenting for planned procedure regarding her left total knee replacement with index surgery in November [address] Abdi. She had persistent pain and swelling about her left knee and underwent an aspiration of her left knee
joint with positive Synovasure alpha defense and and cultures in [place] system of Enterococcus faecalis and elevated inflammatory markers. Patient underwent revision total knee arthroplasty with Dr. Abdi to November 2024 which was uncomplicated.
The patient recovered in the PACU and was transferred to the floor. The postoperative course remained uncomplicated other than some mild vertigo resolved with time and meclizine and asymptomatic anemia with some anemia at baseline. The patient was
comanaged while admitted with infectious disease and recommended for 12 g IV over 24-hour continuous infusion with 6 weeks of IV antibiotics with PICC line placed. She is recommended for weekly BMP CBC ESR and CRP with Dr. Ruth of infectious
disease. She is recommended for consideration of oral amoxicillin for at least 6 months or possibly lifelong.
At the time of discharge, the patient was noted to be tolerating a regular diet, ambulating with adherence to weightbearing and activity restrictions, able to accomplish activities of daily living at baseline level, and had pain controlled on oral
medications. Prior to discharge, the patient was provided with appropriate discharge/follow-up/return instructions, and discharge medications
Discharge Plan
-
Patient Disposition: Home with Home Care
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
Condition: Good
Diet: Other diet
Additional Diets: Diabetic, carb controlled diet x1 week for wound healing purposes.
Adequate hydration, minimize opioids, and wear TEDs stockings to prevent low blood pressure/dizziness.
Activity: As tolerated and With Walker
Driving Restrictions: Not until seen by your Dr
Bathing Restrictions: OK to Shower
Blood Work: CBC, CMP, ESR, CRP weekly on Mondays w/ results to Dr. Vineet Ruth of infectious disease and surgeon.
Other Services: VN and PT
Wound Care: Dressing to be removed 1 week post-surgery.
Stand Alone Forms: Total Hip/Knee Replacement D/C
Referrals:
Yin Mendoza DO [Family Provider, Internal Medicine]
Vineet Ruth DO [Active, Infectious Diseases]
Referral Note: Call to schedule a follow-up appointment
Noman Abdi MD [Active, Orthopedics] - in two to four weeks
Referral Note: If not already scheduled, call to make a follow-up appointment.
Additional Discharge Medication Instructions: TAKE BOWEL MEDS DIRECTED UNTIL HAVING REGULAR BMs TO AVOID OBSTRUCTION (regardless of oral intake).
Prescriptions:
New
mupirocin 2 % ointment
1 applic intranasal BID Qty: 1 0RF
Patient Comments:
BID times 3 days, last dose 7/2 am
aspirin 325 mg Tablet
325 mg PO DAILY Qty: 30 0RF
Rx Instructions:
Take daily x4 weeks for blood clot prevention.
docusate sodium 100 mg Capsule
100 mg PO BID Qty: 30 0RF
lidocaine 4 % Adhesive Patch,Medicated
2 patch topical DAILY Qty: 30 0RF
Rx Instructions:
Over the counter. 12 hours on, 12 hours off.
Apply to sides of left knee/thigh.
sennosides [Ghazal-daniel] 8.6 mg Tablet
17.2 mg PO BID Qty: 30 0RF
ondansetron HCl 4 mg tablet
4 mg PO Q6H PRN (Reason: nausea and vomiting) Qty: 30 0RF
acetaminophen [Tylenol Extra Strength] 500 mg tablet
1,000 mg PO Q6H Qty: 60 0RF
Rx Instructions:
DO NOT exceed >4000 mg daily.
oxycodone 5 mg tablet
5 - 10 mg PO Q6H PRN (Reason: moderate-severe pain) Qty: 30 0RF
Rx Instructions:
1 tab for moderate pain, 2 if severe.
Dx total joint.
ampicillin sodium 2 gram recon soln
12 g IV Q24H 42 Days
Rx Instructions:
Over 24h via continuous infusion for 6 weeks post-surgery.
Ordered by infectious disease.
Saccharomyces boulardii [Florastor] 250 mg capsule
250 mg PO DAILY Qty: 45 0RF
Rx Instructions:
Over the counter. Take while on antibiotic.
If unavailable, choose a different probiotic.
baclofen 5 mg tablet
5 mg PO DAILY PRN (Reason: muscle spasms) Qty: 10 0RF
Rx Instructions:
Caution with narcotic and Xanax; can cause drowsiness
Use sparingly/space out from these meds
cyanocobalamin (vitamin B-12) 1,000 mcg capsule
1,000 mcg PO DAILY Qty: 30 0RF
Rx Instructions:
Take daily for anemia associated with Vitamin B12 deficiency
Continued
montelukast [Singulair] 10 mg Tablet
10 mg PO HS
pravastatin 20 mg Tablet
20 mg PO HS
albuterol sulfate 90 mcg/actuation Hfa Aerosol Inhaler
2 puff INHALATION Q6H PRN (Reason: SOB)
sertraline 100 mg Tablet
100 mg PO HS
alprazolam 0.5 mg Tablet
0.5 mg PO HS
esomeprazole magnesium 20 mg Tablet,Delayed Release (Dr/Ec)
20 mg PO BID
hydrochlorothiazide 25 mg Tablet
25 mg PO DAILY Qty: 1 0RF
Rx Instructions:
HOLD IF systolic blood pressure <130 while on post-surgical narcotics.
lisinopril 40 mg Tablet
40 mg PO HS Qty: 1 0RF
Rx Instructions:
HOLD IF systolic blood pressure <130 while on post-surgical narcotics.
Discontinued
naproxen sodium 220 mg Capsule
220 mg PO BID
aspirin 325 mg Tablet
325 mg PO BID
Discharge Orders:
Discharge Patient (As Directed); Ordered 11/12/24
Ordered By: Fredy Sams
Discharge Date and Time
Print Language: SLOV[place]
[2024-11-12] MEDS: FLUSH (NSS) 2 FLUSH IV (09:55)
--- NOTE | 2024-11-12 10:44 | W.PN.ID1 ---
Date of Service
Date of Service: November 12, 2024
Today's Communication
Continue antibiotics.
Assessment / Plan
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
- S/p washout / modified single-stage procedure (11/09/24)
Elevated ESR
Elevated CRP
Osteoarthritis
Hypertension
HLD
Asthma
GERD
Diverticulosis
Recommendations:
Contine ampicillin 2 g IV every 4 hours.
At discharge, patient will be be transitioned to 12 gm IV over 24h via continuous infusion, to complete a 6-week course of antibiotics.
PICC line placed
Weekly BMP, CBC, ESR and CRP ordered.
Home infusion sheet placed on paper chart.
Given that patient underwent a single-stage procedure, with thereafter maintained on suppressive amoxicillin for at least 6 months, and possibly lifelong.
Will follow in the office.
����������������������������������������������������������
Chief Complaint
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
Subjective / Review of Systems
Patient seen and examined. No difficulty with antibiotics.
Review of Systems: No Fever and No Chills
Vital Signs / Physical Exam
Vital Signs
Vital Signs
Temp Pulse Resp BP Pulse Ox
98.9 F 73 16 160/75 97
11/12/24 07:35 11/12/24 07:35 11/12/24 07:35 11/12/24 08:03 11/12/24 07:35
Physical Exam
Constitutional: No Acute Distress, Comfortable and Non-toxic
Pulmonary: Non Labored
Gastrointestinal: Soft, Non Tender and Non Distended
Extremities: Edema
Wound: Other (Left knee dressing in place with small amount of bloody strikethrough)
Neurological: Awake and Alert
Psychological: Calm
Lines: PICC (Right upper extremity; dual-lumen)
Objective Data
Lab Data
Lab Results
11/12/24 04:49
11/10/24 07:29
ESR 73 mm/hour (0-20) H 11/11/24 06:02
Estimated Creat Clear 72 ml/min 11/10/24 07:29
Total Bilirubin 0.5 mg/dl (0.2-1.3) 11/02/24 11:05
AST 15 U/L (14-36) 11/02/24 11:05
ALT 10 U/L (0-35) 11/02/24 11:05
Alkaline Phosphatase 103 U/L (38-126) 11/02/24 11:05
C-Reactive Protein 43.40 mg/L (0.0-10.00) H 11/11/24 06:02
Most recent labs reviewed.
Micro Results:
11/09/24 11:39 Tissue Culture - Preliminary
Knee - Left No Growth After 48 Hours
Gram Stain - Preliminary
11/09/24 11:39 Tissue Culture - Preliminary
Knee - Left No Growth After 48 Hours
Gram Stain - Preliminary
11/09/24 11:39 Tissue Culture - Preliminary
Knee - Left No Growth After 48 Hours
Gram Stain - Preliminary
11/02/24 11:05 MRSA Screen - Final
Nose No Methicillin Resistant Staphylococcus aureus isolated.
Fluid Cult/not urine Final 10/26/2024
Enterococcus faecalis
Organism 1 Enterococcus faecalis

* This is an amended result. *
Due to physician's request for additional antibiotics.

A prior result that was reported as final has been changed.
1. Enterococcus faecalis
M.I.C. RX
--------- ---
Ampicillin <=2 S
Daptomycin 1 S
Gentamicin Synergy Screen <=500 S
Susceptible result indicates synergy is likely with a cell
wall active agent that is also susceptible
(e.g.ampicillin,penicillin,vancomycin)
Linezolid 2 S
Vancomycin 1 S
Gram Stain Final 10/31/24
Few WBC
No Organisms Seen
--- NOTE | 2024-11-12 10:58 | CM ---
Reviewed the chart notes and spoke with the patient at the bedside. IMM reviewed. Patient's son to transport home today. CM continues to be available to patient/family and is monitoring medical plan for needs at discharge.
Plan: Discharge to home today with [facility] for IV abx and [facility].
[facility] fax:
[2024-11-12 12:45] VITALS: BP 161/72
== END 2024-11-12 13:29 | disposition home health service (06) | DRG 468 ==
LOC: 2 SOUTH 07:47
PROVIDERS: Physician Assistant; Physician Assistant Surgical; ADMITTING PHYSICIAN Orthopaedic Surgery; FAMILY PHYSICIAN Internal Medicine; OTHER PHYSICIAN Internal Medicine Infectious Disease
PROC: 0SRD069 Replacement of Left Knee Joint with Oxidized Zirconium on Polyethylene Synthetic Substitute, Cemented, Open Approach (ICD-10-PCS; 2024-11-09)
PROC: 0SPD0JZ Removal of Synthetic Substitute from Left Knee Joint, Open Approach (ICD-10-PCS; 2024-11-09)
PROC: 02HV33Z Insertion of Infusion Device into Superior Vena Cava, Percutaneous Approach (ICD-10-PCS; 2024-11-12)
DX: T84.54XA Infection and inflammatory reaction due to internal left knee prosthesis, initial encounter (principal); Y83.1 Surgical operation with implant of artificial internal device as the cause of abnormal reaction of the patient, or of later complication, without mention of misadventure at the time of the procedure; Z87.891 Personal history of nicotine dependence; I10 Essential (primary) hypertension; K21.9 Gastro-esophageal reflux disease without esophagitis
CPT/HCPCS: 36415; 71045; 73560; 80048; 80053; 82607; 82728; 82746; 83036; 83540; 83550; 85014; 85018; 85025; 85027; 85652; 86140; 86850; 86900; 86901; 87070; 87176; 87205; 93005; 94640; 97110; 97116; 97162; 97166; 97530; 97535

== ENCOUNTER → 2025-01-03 12:22 | Outpatient (REF) | payer MEDICARE, OTHER, SELFPAY ==
[2025-01-03 15:05] LABS: C-Reactive Protein < 5.00 mg/L (0.0-10.00)
== END ==
LOC: REG 12:22
PROVIDERS: ATTENDING PHYSICIAN Orthopaedic Surgery; FAMILY PHYSICIAN Internal Medicine
DX: T84.50XD Infection and inflammatory reaction due to unspecified internal joint prosthesis, subsequent encounter (principal); Z96.652 Presence of left artificial knee joint
CPT/HCPCS: 36415; 85652; 86140